=== PATIENT | female | born 2000 | race Caucasian/White ===

== ENCOUNTER 2020-09-29 22:59 | Emergency (ER) | payer OTHER ==
[~2020-09-29] VITALS: Ht 170.2 cm; Wt 63.5 kg
[~2020-09-29 22:59] MED LIST: DIPHENHIST25 MG PO; GUAIFENESI100 MG/52 PO; KEFLEX500 MG PO; LEVSIN/SL0.125 MG SL; LORATADINE10 MG PO; PANTOPRAZOLE SO40 MG PO; PEPCID20 MG PO; ZOFRAN4 MG PO
[2020-09-29] MEDS ORDERED: CELEBREX50 MG (23:11)
[2020-09-30] MEDS ORDERED: BENADRYL ALLERG25 MG PO (01:08)
[2020-09-30] MEDS ORDERED: MEDROLPACK PO (01:08)
== END 2020-09-30 01:29 | disposition home or self-care (01) ==
LOC: ER 22:59
DX: T78.40XA Allergy, unspecified, initial encounter (principal); T78.2XXA Anaphylactic shock, unspecified, initial encounter